=== PATIENT | female | born 1965 | race Caucasian/White ===

== ENCOUNTER → 2019-02-25 | Outpatient (CLI) | payer OTHER ==
[~2019-02-25] MED LIST: AMITRIPTYLINE H25 M2 PO; AUGMENTIN 875875 MG PO; CIPRO500 MG PO
== END ==
LOC: M.RAD 02-24 10:20
DX: Z12.31 Encounter for screening mammogram for malignant neoplasm of breast (principal)

== ENCOUNTER → 2019-03-03 | Outpatient (CLI) | payer OTHER | LOC: M.ULTRA 12:45 | DX: N60.02 Solitary cyst of left breast (principal); N60.01 Solitary cyst of right breast ==

== ENCOUNTER 2019-07-10 17:39 | Emergency (ER) | payer OTHER ==
[~2019-07-10] VITALS: Ht 160 cm; Wt 65.8 kg
[2019-07-10] MEDS ORDERED: PHENAZOPYRIDIN200 M2 PO (18:04)
[2019-07-10] MEDS ORDERED: ONDANSETRON HCL4 M2 PO (18:04)
[2019-07-10 18:17] LABS: URINE BILIRUBIN NEGATIVE (Negative); URINE BLOOD TRACE (Negative); URINE CLARITY CLEAR; URINE COLOR YELLOW; URINE GLUCOSE-RANDOM NEGATIVE (Negative); URINE KETONES 2+ (Negative); URINE LEUKOCYTES-REFLEX NEGATIVE (Negative); URINE NITRITE-REFLEX POSITIVE (Negative); URINE PROTEIN TRACE (Negative); URINE SPECIFIC GRAVITY >= 1.030 (1.005-1.030); URINE UROBILINOGEN 0.2 E.U./dl (0.2-1.0)
[2019-07-10 18:26] LABS: BACTERIA-REFLEX 1-9 Few /HPF (None Seen); MUCUS >6 Heavy strn/LPF (None Seen); SQUAMOUS >10 Many /LPF (0-3); URINE RBC 0-2 Rare /HPF (0-2)
[2019-07-10 18:27] LABS: CASTS None Seen /LPF (None Seen); CRYSTALS None Seen /LPF (None Seen); URINE WBC-REFLEX 0-5 Rare /HPF (0-5)
[2019-07-10 19:04] LABS: ABSOLUTE EOSINOPHILS 0.1 thou/uL (0.0-0.7); ABSOLUTE LYMPHOCYTES 0.7 thou/uL (0.8-5.3); ABSOLUTE MONOCYTES 0.6 thou/uL (0.0-1.2); ABSOLUTE NEUTROPHILS 4.2 thou/uL (1.6-8.1); BASOPHILS 0.3 %; EOSINOPHILS 1.2 %; HEMATOCRIT 43.5 % (37.0-47.0); HEMOGLOBIN 14.8 gm/dL (12.0-15.0); LYMPHOCYTES 12.5 %; MCH 31.6 pg (26.0-34.0); MONOCYTES 10.6 %; MPV 8.6 fl. (7.2-11.1); NUCLEATED RBCS 0 /100WBC; PLATELET COUNT* 211 thou/uL (150-400); POLYS 75.4 %; RBC 4.68 mil/uL (4.20-5.00); RDW-CV 13.1 % (10.5-14.5); WBC 5.5 thou/uL (4.0-11.0)
[2019-07-10 19:13] LABS: CALCIUM 9.6 mg/dL (8.5-10.1); CREATININE 0.8 mg/dL (0.6-1.3); POTASSIUM 3.9 mmol/L (3.5-5.1)
[2019-07-10 19:17] LABS: ALBUMIN 3.8 g/dL (3.4-5.0); TOTAL BILIRUBIN 0.8 mg/dL (<0.1-1.0); TOTAL PROTEIN 7.2 g/dL (6.4-8.2)
[2019-07-10] MEDS ORDERED: BACTRIM DS TAB1 EACH PO (19:44)
[2019-07-10 20:36] VITALS: BP 115/59
--- NOTE | 2019-07-13 16:17 | EKG ---
[place] [address] ELECTROCARDIOGRAM REPORT Name: LITTLE DRAKEEY Annie Room: [facility]#: [id number] Admission: 07/10/19 Attend Phys: Discharge: 07/10/19 Date of : 67 Report #: [id number] THIS REPORT FOR: //name// [facility] ED Test Date: 2019-07-10 Test Time: 18:40:14 Pat Name: GILDA DRAKE Department: Room: Gender: F Deli Worker: : 1965 Requested By: Francheska No Order Number: [id number] MD: Vicente Moreland Measurements Intervals Wallace Rate: 60 P: 47 AL: 144 QRS: 57 QRSD: 87 T: 56 QT: 419 QTc: 419 Interpretive Statements Sinus rhythm No previous ECG available for comparison Electronically Signed On 07-13-2019 16:17:33 CDT by Vicente Moreland [email or web address] <ELECTRONICALLY SIGNED> By: Vicente Moreland MD, [facility] 07/13/19 1617 1840 1840 Vicente Moreland MD, FACC /EPI
== END 2019-07-10 20:40 | disposition home or self-care (01) ==
LOC: M.ERS 17:39
PROVIDERS: Nurse Practitioner Family
DX: N30.90 Cystitis, unspecified without hematuria (principal); R11.2 Nausea with vomiting, unspecified

== ENCOUNTER 2019-12-31 16:10 | Emergency (ER) | payer OTHER ==
[~2019-12-31] VITALS: Ht 160 cm; Wt 60.3 kg
[~2019-12-31 16:10] MED LIST changes: +BACTRIM DS TAB1 EACH PO; +ONDANSETRON HCL4 M2 PO; +PHENAZOPYRIDIN200 M2 PO
[2019-12-31] MEDS ORDERED: DRIZALMA SPRINK30 MG PO (16:19)
[2019-12-31 17:09] LABS: ABSOLUTE EOSINOPHILS 0.1 thou/uL (0.0-0.7); ABSOLUTE LYMPHOCYTES 1.2 thou/uL (0.8-5.3); ABSOLUTE MONOCYTES 0.5 thou/uL (0.0-1.2); ABSOLUTE NEUTROPHILS 3.3 thou/uL (1.6-8.1); BASOPHILS 0.4 %; EOSINOPHILS 2.5 %; HEMATOCRIT 43.2 % (37.0-47.0); HEMOGLOBIN 14.5 gm/dL (12.0-15.0); LYMPHOCYTES 23.9 %; MCH 31.5 pg (26.0-34.0); MCHC 33.6 g/dL (28.0-37.0); MCV 93.9 fL (80.0-100.0); MONOCYTES 9.2 %; MPV 8.9 fl. (7.2-11.1); NUCLEATED RBCS 0 /100WBC; PLATELET COUNT* 198 thou/uL (150-400); RDW-CV 13.5 % (10.5-14.5); WBC 5.1 thou/uL (4.0-11.0)
[2019-12-31 17:16] LABS: CALCIUM 8.9 mg/dL (8.5-10.1); POTASSIUM 4.7 mmol/L (3.5-5.1)
[2019-12-31 17:21] LABS: ALBUMIN 3.9 g/dL (3.4-5.0); TOTAL BILIRUBIN 0.5 mg/dL (<0.1-1.0); TOTAL PROTEIN 7.2 g/dL (6.4-8.2)
[2019-12-31] MEDS ORDERED: AUGMENTIN 875-1 EACH PO (17:33)
[2019-12-31] MEDS ORDERED: PHENERGAN 25 MG25 M1 PO (17:36)
[2019-12-31 17:51] VITALS: BP 118/59
== END 2019-12-31 17:52 | disposition home or self-care (01) ==
LOC: M.ERS 16:10
PROVIDERS: Nurse Practitioner Family
DX: G43.909 Migraine, unspecified, not intractable, without status migrainosus (principal); R11.2 Nausea with vomiting, unspecified

== ENCOUNTER → 2020-05-06 | Outpatient (CLI) | payer OTHER ==
[~2020-05-06] MED LIST changes: +AUGMENTIN 875-1 EACH PO; +DRIZALMA SPRINK30 MG PO; +PHENERGAN 25 MG25 M1 PO
== END ==
LOC: M.RAD 09:45
PROVIDERS: ATTEND Family Medicine
DX: Z12.31 Encounter for screening mammogram for malignant neoplasm of breast (principal)

== ENCOUNTER 2020-08-16 04:36 | Emergency (ER) | payer OTHER ==
[~2020-08-16] VITALS: Ht 160 cm; Wt 65.8 kg
[2020-08-16] MEDS ORDERED: TOVIAZ4 MG PO (04:49)
[2020-08-16 05:10] LABS: ABSOLUTE EOSINOPHILS 0.2 thou/uL (0.0-0.7); ABSOLUTE LYMPHOCYTES 1.5 thou/uL (0.8-5.3); ABSOLUTE MONOCYTES 0.5 thou/uL (0.0-1.2); ABSOLUTE NEUTROPHILS 3.8 thou/uL (1.6-8.1); BASOPHILS 0.4 %; HEMATOCRIT 44.7 % (37.0-47.0); HEMOGLOBIN 14.8 gm/dL (12.0-15.0); LYMPHOCYTES 25.5 %; MCV 93.8 fL (80.0-100.0); MONOCYTES 8.7 %; MPV 8.5 fl. (7.2-11.1); NUCLEATED RBCS 0 /100WBC; PLATELET COUNT* 222 thou/uL (150-400); POLYS 62.4 %; RBC 4.77 mil/uL (4.20-5.00); RDW-CV 13.2 % (10.5-14.5); WBC 6.1 thou/uL (4.0-11.0)
[2020-08-16 05:18] LABS: URINE BILIRUBIN NEGATIVE (Negative); URINE BLOOD 3+ (Negative); URINE CLARITY CLEAR; URINE COLOR YELLOW; URINE GLUCOSE-RANDOM NEGATIVE (Negative); URINE KETONES NEGATIVE (Negative); URINE LEUKOCYTES-REFLEX NEGATIVE (Negative); URINE NITRITE-REFLEX NEGATIVE (Negative); URINE PROTEIN NEGATIVE (Negative); URINE SPECIFIC GRAVITY >= 1.030 (1.005-1.030); URINE UROBILINOGEN 0.2 E.U./dl (0.2-1.0)
[2020-08-16 05:29] LABS: CALCIUM 9.5 mg/dL (8.5-10.1); CREATININE 0.9 mg/dL (0.6-1.3); POTASSIUM 3.9 mmol/L (3.5-5.1)
[2020-08-16 05:31] LABS: BACTERIA-REFLEX 1-9 Few /HPF (None Seen); CASTS None Seen /LPF (None Seen); MUCUS 4-6 Moderate strn/LPF (None Seen); SQUAMOUS 0-3 Few /LPF (0-3); URINE WBC-REFLEX 0-5 Rare /HPF (0-5)
[2020-08-16 05:32] LABS: CRYSTALS None Seen /LPF (None Seen)
[2020-08-16 05:32] LABS: ALBUMIN 3.9 g/dL (3.4-5.0); TOTAL BILIRUBIN 0.5 mg/dL (<0.1-1.0); TOTAL PROTEIN 6.8 g/dL (6.4-8.2)
[2020-08-16] MEDS ORDERED: FLOMAX0.4 MG PO (07:33)
[2020-08-16] MEDS ORDERED: CIPROFLOXACIN500 M1 PO (07:33)
[2020-08-16] MEDS ORDERED: PERCOCET 5-3251 EACH PO (07:33)
[2020-08-16 07:41] VITALS: BP 106/51
== END 2020-08-16 07:42 | disposition home or self-care (01) ==
LOC: M.ERS 04:36
PROVIDERS: Personal Emergency Response Attendant
DX: N13.2 Hydronephrosis with renal and ureteral calculous obstruction (principal); Z20.828 Contact with and (suspected) exposure to other viral communicable diseases; G43.909 Migraine, unspecified, not intractable, without status migrainosus; Z90.49 Acquired absence of other specified parts of digestive tract; Z79.899 Other long term (current) drug therapy

== ENCOUNTER → 2021-03-16 | Outpatient (CLI) | payer OTHER ==
[~2021-03-16] MED LIST changes: +CIPROFLOXACIN500 M1 PO; +FLOMAX0.4 MG PO; +PERCOCET 5-3251 EACH PO; +TOVIAZ4 MG PO
== END ==
LOC: M.CT 16:00
PROVIDERS: ATTEND Family Medicine
DX: N20.0 Calculus of kidney (principal); N28.1 Cyst of kidney, acquired; M54.5 Low back pain; Z87.442 Personal history of urinary calculi